=== PATIENT | male | born 2000 | race Caucasian/White ===

== ENCOUNTER 2021-08-07 08:15 | Emergency (ER) | payer OTHER ==
[~2021-08-07 08:15] MED LIST: ZOFRAN ODT 4 MG4 MG PO
[2021-08-07 08:35] LABS: RED BLOOD COUNT 5.09 M/UL (4.20-5.50); WHITE BLOOD COUNT 11.3 K/UL (4.5-11.0)
[2021-08-07 09:00] LABS: BUN/CREATININE RATIO 14 (0-10)
[2021-08-07] MEDS ORDERED: ZOFRAN ODT 4 MG4 MG PO (10:51)
== END 2021-08-07 12:05 | disposition home or self-care (01) ==
LOC: ER1 08:15
PROVIDERS: Family Medicine
DX: S00.81XA Abrasion of other part of head, initial encounter (principal); R11.2 Nausea with vomiting, unspecified; F12.90 Cannabis use, unspecified, uncomplicated; Z87.19 Personal history of other diseases of the digestive system; V49.40XA Driver injured in collision with unspecified motor vehicles in traffic accident, initial encounter; Y92.410 Unspecified street and highway as the place of occurrence of the external cause
CPT/HCPCS: 70450; 71260; 72125; 80053; 85025; 90471; 90715; 96374; 99284; J2405; Q9967